=== PATIENT | female | born 1950 | race Caucasian/White ===

== ENCOUNTER 2021-01-04 09:42 | Emergency (ER) | payer BC ==
[~2021-01-04] VITALS: Ht 160 cm; Wt 72.6 kg
[~2021-01-04 09:42] MED LIST: CALC-913 PO; CHOL100048 PO; HYDR-3454 PO; MULT-974 PO; OMG1KC PO
--- NOTE | 2021-01-04 09:58 | ED Fall/Injury ---
General Chief Complaint: Trauma-Non Activation Stated Complaint: FALL; LT ARM INJ Nursing Triage Note: Patient reports she was doing yard work outside and tripped and fell, landing on her left arm/shoulder. She reports severe pain in her left upper arm with any movement. Source: patient History of Present Illness Date Seen by Provider: Jan 04, 2021 Time Seen by Provider: 09:44 Initial Comments 70-year-old female presenting with left upper arm and humerus pain since having a fall. She was outside doing yard work and fell after tripping this morning just prior to arrival. She denies hitting her head or losing consciousness. She denies any other injuries. She states that she fell and landed on the left upper arm. There is increased pain with any movement of her upper arm. She has no numbness or tingling in her hand or lower arm. She did take 400 mg of ibuprofen prior to coming to the emergency department. The pain is sharp like somebody had hit her hard in the upper arm. It becomes a 10 out of 10 when she tries to move her arm. She is right-hand dominant. She denies any allergies to medications. Location Injury Occurred: her yard at home Occurred: just prior to arrival Severity: severe (with movement) Injuries/Pain Location: upper extremity (left upper arm) Context: tripped Loss of Consciousness: no loss of consciousness Modifying Factors: Improves With Immobilization; Worse With Movement Associated Symptoms (Fall): No Abdominal Pain, No Chest Pain, No Confusion, No Dizziness, No Headache, No Lightheadedness, No Muscle Spasms, No N ausea/Vomiting, No Neck Pain, No Ringing in Ears, No Seizures, No Shortness of Air, No Slurred Speech, No Trouble Walking, No Vision Changes Allergies and Home Medications Allergies Coded Allergies: No Known Drug Allergies (Unverified , 01/04/15) Home Medications Calcium Carbonate/Vitamin D3 1 Each Tablet, 1 EACH PO BID Prescribed by: TOM RASMUSSEN on 08/16/15 0943 Cholecalciferol (Vitamin D3) 1,000 Unit Capsule, 1,000 UNIT PO BID Prescribed by: TOM RASMUSSEN on 08/16/15 0943 Hydrocodone/Acetaminophen 1 Each Tablet, 1 TAB PO Q6H PRN for PAIN-SEVERE (8-10) Prescribed by: LALITHA ALVAREZ on 01/04/21 1037 Multivitamin 1 Each Tablet, 1 EACH PO DAILY Prescribed by: TOM RASMUSSEN on 08/16/1543 [place] 3 Polyunsat Fatty Acids 1,000 Mg Cap, 2 CAP PO DAILY Prescribed by: TOM RASMUSSEN on 08/16/1543 Ondansetron 4 Mg Tab.rapdis, 4 MG PO Q6H PRN for NAUSEA/VOMITING Prescribed by: LALITHA ALVAREZ on 01/04/21 1036 Patient Home Medication List Home Medication List Reviewed: Yes Review of Systems Review of Systems Constitutional: No chills, No fever Eyes: No Symptoms Reported Ears, Nose, Mouth, Throat: no symptoms reported Respiratory: no symptoms reported Cardiovascular: no symptoms reported Gastrointestinal: no symptoms reported Genitourinary: no symptoms reported Musculoskeletal: see HPI Skin: No change in color, No rash Psychiatric/Neurological: Denies Numbness, Denies Paresthesia, Denies Tingling Past Vvflkot-Xycyix-Vcnndw Hx Past Med/Social Hx: Reviewed Nursing Past Med/Soc Hx Patient Social History Recent Infectious Disease Expo: No Immunizations Up To Date Date of Pneumonia Vaccine: Aug 09, 2015 Date of Influenza Vaccine: Jul 29, 2015 Past Medical History Respiratory: No Cardiac: No Neurological: No Reproductive Disorders: No Genitourinary: No Gastrointestinal: No Musculoskeletal: No Arthritis Endocrine: No Physical Exam Vital Signs Vital Signs - First Documented 01/04/21 09:45 Temp 36.7 Pulse 90 Resp 16 B/P (MAP) 136/80 (98) Pulse Ox 99 O2 Delivery Room Air Capillary Refill : Less Than 3 Seconds Height, Weight, BMI Height: 5'3.00" Weight: 158lbs. oz. 71.937979sl; 28.00 BMI Method: General Appearance: WD/WN, mild distress HEENT: PERRL/EOMI Neck: non-tender, full range of motion, supple, normal inspection Cardiovascular: normal peripheral pulses, regular rate, rhythm Respiratory: chest non-tender, lungs clear, normal breath sounds Extremities: normal capillary refill, other (tender to palpation on left upper arm/humerus. NVT to left hand and lower arm) Neurologic/Psychiatric: senior painter II-XII nml as tested, no motor/sensory deficits, alert, oriented x 3 Skin: normal color, warm/dry Procedures/Interventions Splinting and Joint Reduction : Location: left upper arm Pre-Proc Neuro Vasc Exam: normal Post-Proc Neuro Vasc Exam: normal Progress Placed in shoulder immobilizer for left proximal humerus/neck fracture. Given sling to use at home if not tolerating the immobilizer. NVT intact before and after placing immobilizer. Progress/Results/Core Measures Results/Orders My Orders Orders - LALITHA ALVAREZ MD Humerus 2 View Left (01/04/21 09:52) Ice: Apply To Affected Area (01/04/21 09:52) Ondansetron Oral Dissolve Tab (Zofran (01/04/21 10:06) Morphine Injection (Morphine Injection (01/04/21 10:06) Shoulder Immoblizer (01/04/21 10:07) Ed Ortho/Other Supplies Order (01/04/21 10:07) Orthopedic Equiment (01/04/21 10:07) Ondansetron Oral Dissolve Tab (Zofran (01/04/21 10:40) Vital Signs/I&O 01/04/21 09:45 Temp 36.7 Pulse 90 Resp 16 B/P (MAP) 136/80 (98) Pulse Ox 99 O2 Delivery Room Air Blood Pressure Mean: 98 Progress Progress Note #1: Progress Note patient took 400 mg of Ibuprofen prior to coming to ED. Offered a pain shot before xrays and pt thought she could have films and tolerate that. Order ice pack for pain, xrays for the humerus. Progress Note #2: Progress Note On my review of her xrays she has humeral neck fracture with greater tuberosity mildly displaced, otherwise it is in good position. Will give Zofran 4 mg ODT for nausea, Morphine 4 mg IM for pain. Place in shoulder immobilizer for stabilizing the fracture and send with sling for her to change out to if the immobilizer is not tolerated. Given information for Dr. Downs and MACKENZIE Winston for Orthopedics for follow up. Progress Note #3: Progress Note Pt did have additional n/v so given a 2nd Zofran ODT. Counseled on follow up and medications. Discussed additional anti-emetics but they would make her even more weak and dizzy and she felt that way already from the Morphine shot so she opted to wait and just take an additional Zofran if needed at home. Diagnostic Imaging Diagonstic Imaging: Xray Plain Films/CT/US/NM/MRI: other (left humerus) Comments On my review of 2 views of left humerus she has humeral neck fracture in decent position with mildly displaced greater tuberosity. There is no dislocation NAME: MARY GARZON [facility] REC#: [id number] PT STATUS: REG ER : 1950 PHYSICIAN: LALITHA ALVAREZ MD ADMIT DATE: 01/04/21/ER FS Draft Date of Exam:01/04/21 HUMERUS 2 VIEW LEFT INDICATION: Fall with left arm pain. TECHNIQUE: AP and lateral views of the left humerus were obtained at 9:56 AM. FINDINGS: There is an acute fracture of the left humeral neck without significant displacement. The mid and distal portions of the humeral shaft appear intact. There is no dislocation. IMPRESSION: Acute nondisplaced humeral neck fracture. Dictated on workstation # [id number] Dict: 01/04/21 1051 Trans: 01/04/21 1057 [id number] Interpreted by: SANYA JAMES MD Electronically signed by: Reviewed: Other (Reviewed radiologist report), Reviewed by Me Departure Impression Primary Impression: Traumatic closed nondisplaced fracture of proximal end of left humerus Qualified Codes: S42.202A - Unspecified fracture of upper end of left humerus, initial encounter for closed fracture Additional Impression: Fall at home Qualified Codes: W19.XXXA - Unspecified fall, initial encounter; Y92.009 - Unspecified place in unspecified non-institutional (private) residence as the place of occurrence of the external cause Disposition: 01 HOME, SELF-CARE Condition: Stable Departure-Patient Inst. Decision time for Depature: 10:34 Referrals: ERIC NUNN DO (PCP/Family) Primary Care Physician CRESENCIO DOWNS MD Patient Instructions: How to Use a Shoulder Sling ED, Upper Arm Fracture Add. Discharge Instructions: Call [phone] to make follow up appointment with Orthopedics to see Dr. Downs or his Nurse Practitioner Rafa Winston in the clinic within the next week about your humerus fracture. Wear the immobilizer or sling at all times to help stabilize your fracture and arm. Try to keep your arm/shoulder area elevated at all times to help limit pain and swelling. May apply ice 20-30 minutes every few hours as needed for pain. May take the Hydrocodone/Acetaminophen pain medicine for severe pain but make sure to take with food. If you get constipated then take Miralax or laxative to help with that since the Hydrocodone can cause constipation. You may still take Ibuprofen or Acetaminophen in addition to the pain medicine if you need additional pain control. If you take additional Acetaminophen, then avoid taking more than 3,000 mg in a 24 hour period. Each Hydrocodone has 325 mg of Acetaminophen in the pill. All discharge instructions reviewed with patient and/or family. Voiced understanding. Scripts Hydrocodone/Acetaminophen (Hydrocodone-Acetamin 5-325 mg) 1 Each Tablet 1 TAB PO Q6H PRN for PAIN-SEVERE (8-10) for 7 Days, #30 TAB 0 Refills Prov: LALITHA ALVAREZ MD 01/04/21 Ondansetron (Ondansetron Odt) 4 Mg Tab.rapdis 4 MG PO Q6H PRN for NAUSEA/VOMITING for 3 Days, #12 TAB 0 Refills Prov: LALITHA ALVAREZ MD 01/04/21 LALITHA ALVAREZ MD Jan 04, 2021 09:58
[2021-01-04] MEDS ORDERED: morphine INJ 10 MG/ML 1ML (SYR OR VIAL) IM STA (10:06)
[2021-01-04] MEDS ORDERED: ONDANSETRON 4 MG (ZOFRAN) ORAL DISSOLVE TAB PO STA ×2 (10:06→10:40)
[2021-01-04] MEDS ORDERED: ACHD5005 PO (10:36)
[2021-01-04] MEDS ORDERED: ONDA4TAB11 PO (10:36)
--- NOTE | 2021-01-04 10:57 | Diagnostic Imaging Report ---
INDICATION: Fall with left arm pain. TECHNIQUE: AP and lateral views of the left humerus were obtained at 9:56 AM. FINDINGS: There is an acute fracture of the left humeral neck without significant displacement. The mid and distal portions of the humeral shaft appear intact. There is no dislocation. IMPRESSION: Acute nondisplaced humeral neck fracture. Dictated by: Dictated on workstation # [id number]
[2021-01-04 11:15] VITALS: BP 133/71
== END 2021-01-04 11:17 | disposition home or self-care (01) ==
LOC: EDUNIT# 09:42 → ER FS 09:44
DX: S42.295A Other nondisplaced fracture of upper end of left humerus, initial encounter for closed fracture (principal); I10 Essential (primary) hypertension; W01.0XXA Fall on same level from slipping, tripping and stumbling without subsequent striking against object, initial encounter; Y92.007 Garden or yard of unspecified non-institutional (private) residence as the place of occurrence of the external cause
CPT/HCPCS: 73060; 96372; 99283; A4565; L3650

== ENCOUNTER → 2021-01-20 | Outpatient (CLI) | payer BC ==
[~2021-01-20] MED LIST changes: +ACHD5005 PO; +ONDA4TAB11 PO
--- NOTE | 2021-01-20 14:48 | Diagnostic Imaging Report ---
INDICATION: Left shoulder fracture, follow-up. Time of exam 1:10 PM Correlation is made with prior study 01/04/2021. Impacted fracture of the surgical neck of the proximal left humerus again noted. Fracture line remains visible. Alignment is anatomic. Glenohumeral and acromioclavicular alignment are normal. IMPRESSION: Proximal humerus fracture. Fracture line remains clearly visible. Dictated by: Dictated on workstation # [id number]
== END ==
LOC: RAD FS 13:03
PROVIDERS: ATTEND Nurse Practitioner
DX: S42.222A 2-part displaced fracture of surgical neck of left humerus, initial encounter for closed fracture (principal); X58.XXXA Exposure to other specified factors, initial encounter
CPT/HCPCS: 73030

== ENCOUNTER → 2021-02-03 | Outpatient (CLI) | payer BC ==
--- NOTE | 2021-02-03 15:18 | Diagnostic Imaging Report ---
INDICATION: Left shoulder fracture follow-up. EXAMINATION: AP, oblique and transscapular views of the left shoulder were obtained. COMPARISON: 01/20/2021. FINDINGS: Comminuted fracture of the left humeral head and neck is unchanged in alignment and appearance compared to the prior study. There is no dislocation or new abnormality. IMPRESSION: Stable alignment of left humeral head and neck fracture with no acute change from the prior study. Dictated by: Dictated on workstation # [id number]
== END ==
LOC: RAD FS 13:08
PROVIDERS: ATTEND Nurse Practitioner
DX: S42.222D 2-part displaced fracture of surgical neck of left humerus, subsequent encounter for fracture with routine healing (principal)
CPT/HCPCS: 73030

== ENCOUNTER → 2021-02-24 | Outpatient (CLI) | payer BC ==
--- NOTE | 2021-02-24 14:44 | Diagnostic Imaging Report ---
INDICATION: Humerus fracture, follow-up. Time of exam 1:19 PM Correlation is made with prior radiograph from 02/03/2021. Impacted proximal left humerus fracture is noted. There is some callus formation present which has increased since prior exam. Fracture line does remain partly visible. Alignment is stable. There is normal glenohumeral and acromioclavicular alignment. Acromiohumeral space is normal. IMPRESSION: Healing proximal humerus fracture. Fracture line does remain partly visible. Dictated by: Dictated on workstation # [id number]
== END ==
LOC: RAD FS 13:10
PROVIDERS: ATTEND Nurse Practitioner
DX: S42.222D 2-part displaced fracture of surgical neck of left humerus, subsequent encounter for fracture with routine healing (principal)
CPT/HCPCS: 73030